=== PATIENT | male | born 1950 | race Caucasian/White ===

== ENCOUNTER 2020-04-21 18:39 | Inpatient (IN) | payer MEDICARE ==
[~2020-04-21] VITALS: Ht 182.9 cm; Wt 64.8 kg
[2020-04-21 19:30] LABS: BASOPHILS % 0.2 % (0.0-1.0); EOSINOPHILS % 0.1 % (0.0-6.0); HEMATOCRIT 47.1 % (38.2-49.6); HEMOGLOBIN 15.2 g/dL (14.0-18.0); LYMPHOCYTES # (AUTO) 0.4 (1.0-3.2); LYMPHOCYTES % 2.3 % (18.0-39.1); MEAN CORPUSCULAR HEMOGLOBIN 27.7 pg (28-32); MEAN CORPUSCULAR HGB CONC 32.3 g/dL (31-35); MEAN CORPUSCULAR VOLUME 85.9 fL (81-99); MONOCYTES # (AUTO) 1.2 (0.2-0.8); MONOCYTES % 7.3 % (4.4-11.3); NEUTROPHILS # (AUTO) 14.9 (2.1-6.9); NEUTROPHILS % 89.6 % (38.7-80.0); PLATELET COUNT 408 x10e3/uL (140-360); RED BLOOD COUNT 5.48 x10e6/uL (4.3-5.7); RED CELL DISTRIBUTION WIDTH 14.7 % (11.7-14.4)
[2020-04-21 20:18] LABS: ALANINE AMINOTRANSFERASE 11 IU/L (0-55); ALBUMIN 3.6 g/dL (3.5-5.0); ALBUMIN/GLOBULIN RATIO 0.9 (0.8-2.0); ALKALINE PHOSPHATASE 79 IU/L (40-150); ANION GAP 19.4 mmol/L (8-16); BLOOD UREA NITROGEN 28 mg/dL (7-26); BUN/CREATININE RATIO 31 (6-25); CALCIUM 8.5 mg/dL (8.4-10.2); CARBON DIOXIDE 22 mmol/L (22-29); CHLORIDE 100 mmol/L (98-107); CREATININE, SERUM 0.91 mg/dL (0.72-1.25); EST GLOMERULAR FILTRATION RATE > 60 ML/MIN (60-); GLUCOSE 121 mg/dL (74-118); POTASSIUM 4.4 mmol/L (3.5-5.1); SODIUM 137 mmol/L (136-145)
[2020-04-21] MEDS ORDERED: DEXAMETHASONE SOD PHOS 10 MG/1 ML VIAL IV ONE (20:30)
[2020-04-21 21:14] VITALS: BP 157/79
[2020-04-21] MEDS ORDERED: FLOMAX0.4 MG PO (21:32)
[2020-04-21] MEDS ORDERED: CHOLECALCIFEROL1 GM PO (21:32)
[2020-04-21] MEDS ORDERED: ATORVASTATIN CA20 MG PO (21:32)
[2020-04-21] MEDS ORDERED: ASCORBIC ACID500 M2 PO (21:32)
[2020-04-21] MEDS ORDERED: METFORMIN HCL500 MG PO (21:32)
[2020-04-21 22:00] VITALS: BP 157/79
[2020-04-21] MEDS: LORAZEPAM INJ 2 MG/ML VIAL IV PRN (23:02)
[2020-04-22] VITALS (8 sets, daily range): BP systolic 116–139; BP diastolic 69–83
[2020-04-22 04:58] LABS: BASOPHILS % 0.2 % (0.0-1.0); EOSINOPHILS # (AUTO) 0.1 (0.0-0.4); EOSINOPHILS % 0.7 % (0.0-6.0); HEMATOCRIT 48.3 % (38.2-49.6); HEMOGLOBIN 14.5 g/dL (14.0-18.0); LYMPHOCYTES # (AUTO) 0.3 (1.0-3.2); LYMPHOCYTES % 1.6 % (18.0-39.1); MEAN CORPUSCULAR HEMOGLOBIN 27.8 pg (28-32); MEAN CORPUSCULAR VOLUME 92.5 fL (81-99); MONOCYTES # (AUTO) 0.7 (0.2-0.8); MONOCYTES % 4.1 % (4.4-11.3); NEUTROPHILS # (AUTO) 16.5 (2.1-6.9); NEUTROPHILS % 93.1 % (38.7-80.0); PLATELET COUNT 284 x10e3/uL (140-360); RED BLOOD COUNT 5.22 x10e6/uL (4.3-5.7); RED CELL DISTRIBUTION WIDTH 14.7 % (11.7-14.4)
[2020-04-22] MEDS ORDERED: DEXTROSE 50% SYRINGE 50 ML IV PRN (05:00)
[2020-04-22 05:21] LABS: ANION GAP 18.7 mmol/L (8-16); BLOOD UREA NITROGEN 25 mg/dL (7-26); BUN/CREATININE RATIO 30 (6-25); CALCIUM 8.5 mg/dL (8.4-10.2); CARBON DIOXIDE 21 mmol/L (22-29); CHLORIDE 102 mmol/L (98-107); CREATININE, SERUM 0.84 mg/dL (0.72-1.25); EST GLOMERULAR FILTRATION RATE > 60 ML/MIN (60-); GLUCOSE 145 mg/dL (74-118); POTASSIUM 4.7 mmol/L (3.5-5.1); SODIUM 137 mmol/L (136-145)
[2020-04-22] MEDS: INSULIN REGULAR, HUMAN 100 UNIT/1 ML 3ML VIAL SQ SCH ×4 (08:43→20:48)
[2020-04-22] MEDS: METFORMIN HCL 500 MG TAB PO SCH ×2 (08:44→17:00)
[2020-04-22] MEDS: DEXAMETHASONE SOD PHOS 10 MG/1 ML VIAL IV SCH (09:30)
[2020-04-22] MEDS ORDERED: SODIUM CHLORIDE 0.9% 250ML 250 ML ONE (09:35)
[2020-04-22] MEDS: AZITHROMYCIN 500MG/NS 250 ML 250 ML IV SCH (09:58)
[2020-04-22] MEDS: CEFTRIAXONE SOD 2 GM/NS 100 ML 100 ML IV SCH (11:04)
[2020-04-22] MEDS ORDERED: TAMSULOSIN HCL 0.4 MG CAP PO SCH (17:00)
[2020-04-22] MEDS: ATORVASTATIN 20 MG TAB PO SCH (20:48)
[2020-04-22] MEDS: LORAZEPAM INJ 2 MG/ML VIAL IV PRN (22:45)
[2020-04-23] VITALS (8 sets, daily range): BP systolic 106–125; BP diastolic 49–90
[2020-04-23 05:47] LABS: BASOPHILS # (AUTO) 0.1 (0.0-0.1); BASOPHILS % 0.4 % (0.0-1.0); HEMATOCRIT 45.3 % (38.2-49.6); HEMOGLOBIN 14.2 g/dL (14.0-18.0); LYMPHOCYTES # (AUTO) 0.7 (1.0-3.2); LYMPHOCYTES % 3.5 % (18.0-39.1); MEAN CORPUSCULAR HEMOGLOBIN 28.1 pg (28-32); MEAN CORPUSCULAR HGB CONC 31.3 g/dL (31-35); MEAN CORPUSCULAR VOLUME 89.7 fL (81-99); MONOCYTES # (AUTO) 1.5 (0.2-0.8); MONOCYTES % 7.2 % (4.4-11.3); NEUTROPHILS # (AUTO) 17.8 (2.1-6.9); NEUTROPHILS % 88.4 % (38.7-80.0); PLATELET COUNT 380 x10e3/uL (140-360); RED BLOOD COUNT 5.05 x10e6/uL (4.3-5.7); RED CELL DISTRIBUTION WIDTH 14.3 % (11.7-14.4)
[2020-04-23 06:12] LABS: ALANINE AMINOTRANSFERASE 7 IU/L (0-55); ALBUMIN/GLOBULIN RATIO 0.7 (0.8-2.0); ALKALINE PHOSPHATASE 73 IU/L (40-150); BLOOD UREA NITROGEN 27 mg/dL (7-26); BUN/CREATININE RATIO 30 (6-25); CALCIUM 9.1 mg/dL (8.4-10.2); CARBON DIOXIDE 27 mmol/L (22-29); CHLORIDE 101 mmol/L (98-107); CREATININE, SERUM 0.89 mg/dL (0.72-1.25); EST GLOMERULAR FILTRATION RATE > 60 ML/MIN (60-); GLUCOSE 119 mg/dL (74-118); MAGNESIUM 2.4 MG/DL (1.3-2.1); SODIUM 141 mmol/L (136-145)
[2020-04-23] MEDS: INSULIN REGULAR, HUMAN 100 UNIT/1 ML 3ML VIAL SQ SCH ×4 (07:30→21:00)
[2020-04-23] MEDS: TAMSULOSIN HCL 0.4 MG CAP PO SCH ×2 (09:00→16:07)
[2020-04-23] MEDS: METFORMIN HCL 500 MG TAB PO SCH ×2 (09:00→16:07)
[2020-04-23] MEDS: DEXAMETHASONE SOD PHOS 10 MG/1 ML VIAL IV SCH (09:17)
[2020-04-23] MEDS: AZITHROMYCIN 500MG/NS 250 ML 250 ML IV SCH (09:17)
[2020-04-23] MEDS: CEFTRIAXONE SOD 2 GM/NS 100 ML 100 ML IV SCH (13:31)
[2020-04-23] MEDS ORDERED: METOPROLOL TARTRATE INJ 1 MG/ML VIAL IV PRN (16:45)
[2020-04-23] MEDS ORDERED: AMIODARONE HCL 150MG 100 ML IV ONE (17:00)
[2020-04-23] MEDS: ATORVASTATIN 20 MG TAB PO SCH (21:00)
[2020-04-23] MEDS ORDERED: METOPROLOL TARTRATE INJ 1 MG/ML VIAL IV ONE (22:15)
[2020-04-23] MEDS ORDERED: AMIODARONE HCL 900 MG in DEXTROSE 5% 500ML 500 ML IV SCH (22:15)
[2020-04-23] MEDS ORDERED: AMIODARONE 900MG 500 ML IV ONE (22:33)
[2020-04-24] MEDS: LORAZEPAM INJ 2 MG/ML VIAL IV PRN (00:25)
[2020-04-24 05:52] LABS: BASOPHILS % 0.1 % (0.0-1.0); HEMATOCRIT 41.5 % (38.2-49.6); HEMOGLOBIN 13.2 g/dL (14.0-18.0); LYMPHOCYTES # (AUTO) 0.3 (1.0-3.2); MEAN CORPUSCULAR HEMOGLOBIN 27.7 pg (28-32); MEAN CORPUSCULAR HGB CONC 31.8 g/dL (31-35); MEAN CORPUSCULAR VOLUME 87.2 fL (81-99); MONOCYTES % 7.3 % (4.4-11.3); NEUTROPHILS # (AUTO) 12.9 (2.1-6.9); NEUTROPHILS % 89.8 % (38.7-80.0); PLATELET COUNT 435 x10e3/uL (140-360); RED BLOOD COUNT 4.76 x10e6/uL (4.3-5.7); RED CELL DISTRIBUTION WIDTH 14.2 % (11.7-14.4)
[2020-04-24] MEDS ORDERED: METOPROLOL TARTRATE 25 MG TAB PO SCH (06:00)
[2020-04-24 06:19] LABS: ALANINE AMINOTRANSFERASE 7 IU/L (0-55); ALBUMIN 2.6 g/dL (3.5-5.0); ALBUMIN/GLOBULIN RATIO 0.6 (0.8-2.0); ALKALINE PHOSPHATASE 70 IU/L (40-150); ANION GAP 15.1 mmol/L (8-16); BLOOD UREA NITROGEN 28 mg/dL (7-26); BUN/CREATININE RATIO 33 (6-25); CALCIUM 8.7 mg/dL (8.4-10.2); CARBON DIOXIDE 29 mmol/L (22-29); CHLORIDE 98 mmol/L (98-107); CREATINE KINASE 94 IU/L (30-200); CREATININE, SERUM 0.84 mg/dL (0.72-1.25); EST GLOMERULAR FILTRATION RATE > 60 ML/MIN (60-); GLUCOSE 274 mg/dL (74-118); POTASSIUM 4.1 mmol/L (3.5-5.1); SODIUM 138 mmol/L (136-145)
[2020-04-24] MEDS: INSULIN REGULAR, HUMAN 100 UNIT/1 ML 3ML VIAL SQ SCH ×4 (07:30→21:00)
[2020-04-24 09:00] VITALS: BP 104/43
[2020-04-24] MEDS: TAMSULOSIN HCL 0.4 MG CAP PO SCH ×2 (09:00→16:51)
[2020-04-24] MEDS: METFORMIN HCL 500 MG TAB PO SCH ×2 (09:00→16:51)
[2020-04-24] MEDS: AZITHROMYCIN 500MG/NS 250 ML 250 ML IV SCH (09:16)
[2020-04-24] MEDS: DEXAMETHASONE SOD PHOS 10 MG/1 ML VIAL IV SCH (09:16)
[2020-04-24] MEDS: METOPROLOL TARTRATE INJ 1 MG/ML VIAL IV SCH ×3 (14:09→22:11)
[2020-04-24] MEDS: CEFTRIAXONE SOD 2 GM/NS 100 ML 100 ML IV SCH (14:09)
[2020-04-24 19:00] VITALS: BP 109/66
[2020-04-24 20:00] VITALS: BP 109/66
[2020-04-24] MEDS ORDERED: AMIODARONE 900MG 500 ML IV ONE (20:09)
[2020-04-24 21:00] VITALS: BP 119/71
[2020-04-24] MEDS: ATORVASTATIN 20 MG TAB PO SCH (21:00)
[2020-04-24 22:21] VITALS: BP 109/74
[2020-04-24 23:00] VITALS: BP 119/74
[2020-04-24] MEDS: AMIODARONE HCL 900 MG in DEXTROSE 5% 500ML 500 ML IV SCH (23:15)
[2020-04-25] VITALS (16 sets, daily range): BP systolic 117–147; BP diastolic 69–85
[2020-04-25 05:22] LABS: BASOPHILS % 0.4 % (0.0-1.0); EOSINOPHILS % 0.1 % (0.0-6.0); HEMATOCRIT 42.6 % (38.2-49.6); HEMOGLOBIN 13.3 g/dL (14.0-18.0); LYMPHOCYTES # (AUTO) 0.3 (1.0-3.2); MEAN CORPUSCULAR HEMOGLOBIN 27.1 pg (28-32); MEAN CORPUSCULAR HGB CONC 31.2 g/dL (31-35); MEAN CORPUSCULAR VOLUME 86.8 fL (81-99); MONOCYTES # (AUTO) 0.9 (0.2-0.8); NEUTROPHILS # (AUTO) 9.6 (2.1-6.9); NEUTROPHILS % 86.3 % (38.7-80.0); PLATELET COUNT 448 x10e3/uL (140-360); RED BLOOD COUNT 4.91 x10e6/uL (4.3-5.7); RED CELL DISTRIBUTION WIDTH 14.4 % (11.7-14.4)
[2020-04-25] MEDS: METOPROLOL TARTRATE INJ 1 MG/ML VIAL IV SCH ×2 (06:00→13:35)
[2020-04-25 06:47] LABS: ALANINE AMINOTRANSFERASE 11 IU/L (0-55); ALBUMIN 2.6 g/dL (3.5-5.0); ALBUMIN/GLOBULIN RATIO 0.6 (0.8-2.0); ALKALINE PHOSPHATASE 68 IU/L (40-150); ANION GAP 14.1 mmol/L (8-16); BLOOD UREA NITROGEN 32 mg/dL (7-26); BUN/CREATININE RATIO 36 (6-25); CALCIUM 8.7 mg/dL (8.4-10.2); CARBON DIOXIDE 31 mmol/L (22-29); CHLORIDE 101 mmol/L (98-107); CREATININE, SERUM 0.89 mg/dL (0.72-1.25); EST GLOMERULAR FILTRATION RATE > 60 ML/MIN (60-); GLUCOSE 222 mg/dL (74-118); MAGNESIUM 2.7 MG/DL (1.3-2.1); POTASSIUM 4.1 mmol/L (3.5-5.1); SODIUM 142 mmol/L (136-145)
[2020-04-25] MEDS: INSULIN REGULAR, HUMAN 100 UNIT/1 ML 3ML VIAL SQ SCH ×4 (08:39→21:33)
[2020-04-25] MEDS: CEFTRIAXONE SOD 2 GM/NS 100 ML 100 ML IV SCH (08:40)
[2020-04-25] MEDS: TAMSULOSIN HCL 0.4 MG CAP PO SCH ×2 (08:40→12:33)
[2020-04-25] MEDS: DEXAMETHASONE SOD PHOS 10 MG/1 ML VIAL IV SCH (08:40)
[2020-04-25] MEDS: METFORMIN HCL 500 MG TAB PO SCH ×2 (08:40→18:06)
[2020-04-25] MEDS: METOPROLOL TARTRATE 25 MG TAB PO SCH (18:07)
[2020-04-25] MEDS: ENOXAPARIN SOD INJ 60 MG/0.6 ML SYR SC SCH (21:30)
[2020-04-25] MEDS: ATORVASTATIN 20 MG TAB PO SCH (21:30)
[2020-04-25] MEDS: AMIODARONE HCL 200 MG TAB PO SCH (23:04)
[2020-04-25] MEDS: AMIODARONE HCL 900 MG in DEXTROSE 5% 500ML 500 ML IV SCH (23:15)
[2020-04-26] VITALS (14 sets, daily range): BP systolic 111–162; BP diastolic 64–96
[2020-04-26] MEDS: METOPROLOL TARTRATE 25 MG TAB PO SCH ×4 (00:30→17:34)
[2020-04-26] MEDS: TAMSULOSIN HCL 0.4 MG CAP PO SCH ×2 (09:00→17:34)
[2020-04-26] MEDS ORDERED: AMIODARONE HCL 200 MG TAB PO SCH (09:00)
[2020-04-26] MEDS: INSULIN REGULAR, HUMAN 100 UNIT/1 ML 3ML VIAL SQ SCH ×4 (09:12→21:44)
[2020-04-26] MEDS: METFORMIN HCL 500 MG TAB PO SCH ×2 (09:25→17:34)
[2020-04-26] MEDS: DEXAMETHASONE SOD PHOS 10 MG/1 ML VIAL IV SCH (09:25)
[2020-04-26] MEDS: AMIODARONE HCL 200 MG TAB PO SCH ×2 (09:25→17:34)
[2020-04-26] MEDS: ENOXAPARIN SOD INJ 60 MG/0.6 ML SYR SC SCH ×2 (09:26→21:41)
[2020-04-26] MEDS: CEFTRIAXONE SOD 2 GM/NS 100 ML 100 ML IV SCH (09:26)
[2020-04-26] MEDS: ATORVASTATIN 20 MG TAB PO SCH (21:41)
[2020-04-27] VITALS (13 sets, daily range): BP systolic 124–148; BP diastolic 71–89
[2020-04-27] MEDS: METOPROLOL TARTRATE 25 MG TAB PO SCH ×4 (00:21→17:35)
[2020-04-27] MEDS: INSULIN REGULAR, HUMAN 100 UNIT/1 ML 3ML VIAL SQ SCH ×4 (07:30→21:19)
[2020-04-27] MEDS: METFORMIN HCL 500 MG TAB PO SCH ×2 (08:08→17:35)
[2020-04-27] MEDS: TAMSULOSIN HCL 0.4 MG CAP PO SCH ×2 (08:08→17:35)
[2020-04-27] MEDS: DEXAMETHASONE SOD PHOS 10 MG/1 ML VIAL IV SCH (08:08)
[2020-04-27] MEDS: ENOXAPARIN SOD INJ 60 MG/0.6 ML SYR SC SCH ×2 (08:08→21:15)
[2020-04-27] MEDS: AMIODARONE HCL 200 MG TAB PO SCH ×2 (08:08→17:35)
[2020-04-27] MEDS: CEFTRIAXONE SOD 2 GM/NS 100 ML 100 ML IV SCH (10:57)
[2020-04-27] MEDS ORDERED: SODIUM CHLORIDE 0.9% 250ML 250 ML ONE (11:10)
[2020-04-27] MEDS: ATORVASTATIN 20 MG TAB PO SCH (21:15)
[2020-04-28] VITALS (10 sets, daily range): BP systolic 129–133; BP diastolic 72–84
[2020-04-28 05:29] LABS: BASOPHILS # (AUTO) 0.1 (0.0-0.1); BASOPHILS % 0.5 % (0.0-1.0); EOSINOPHILS # (AUTO) 0.1 (0.0-0.4); EOSINOPHILS % 0.4 % (0.0-6.0); HEMATOCRIT 46.2 % (38.2-49.6); HEMOGLOBIN 14.5 g/dL (14.0-18.0); LYMPHOCYTES # (AUTO) 0.6 (1.0-3.2); MEAN CORPUSCULAR HEMOGLOBIN 26.9 pg (28-32); MEAN CORPUSCULAR HGB CONC 31.4 g/dL (31-35); MEAN CORPUSCULAR VOLUME 85.7 fL (81-99); MONOCYTES # (AUTO) 1.7 (0.2-0.8); MONOCYTES % 8.4 % (4.4-11.3); NEUTROPHILS # (AUTO) 16.5 (2.1-6.9); NEUTROPHILS % 83.4 % (38.7-80.0); PLATELET COUNT 558 x10e3/uL (140-360); RED BLOOD COUNT 5.39 x10e6/uL (4.3-5.7); RED CELL DISTRIBUTION WIDTH 14.1 % (11.7-14.4)
[2020-04-28 05:59] LABS: ALANINE AMINOTRANSFERASE 23 IU/L (0-55); ALBUMIN 2.3 g/dL (3.5-5.0); ALBUMIN/GLOBULIN RATIO 0.5 (0.8-2.0); ALKALINE PHOSPHATASE 69 IU/L (40-150); ANION GAP 14.9 mmol/L (8-16); BLOOD UREA NITROGEN 36 mg/dL (7-26); BUN/CREATININE RATIO 52 (6-25); CALCIUM 8.9 mg/dL (8.4-10.2); CARBON DIOXIDE 29 mmol/L (22-29); CHLORIDE 103 mmol/L (98-107); CREATININE, SERUM 0.69 mg/dL (0.72-1.25); EST GLOMERULAR FILTRATION RATE > 60 ML/MIN (60-); GLUCOSE 141 mg/dL (74-118); MAGNESIUM 1.9 MG/DL (1.3-2.1); POTASSIUM 3.9 mmol/L (3.5-5.1); SODIUM 143 mmol/L (136-145)
[2020-04-28] MEDS: METOPROLOL TARTRATE 25 MG TAB PO SCH ×4 (06:00→17:27)
[2020-04-28] MEDS: INSULIN REGULAR, HUMAN 100 UNIT/1 ML 3ML VIAL SQ SCH ×4 (08:12→21:00)
[2020-04-28] MEDS: DEXAMETHASONE SOD PHOS 10 MG/1 ML VIAL IV SCH (08:39)
[2020-04-28] MEDS: METFORMIN HCL 500 MG TAB PO SCH ×2 (08:39→17:27)
[2020-04-28] MEDS: ENOXAPARIN SOD INJ 60 MG/0.6 ML SYR SC SCH ×2 (08:39→21:49)
[2020-04-28] MEDS: AMIODARONE HCL 200 MG TAB PO SCH ×2 (08:39→17:27)
[2020-04-28] MEDS: TAMSULOSIN HCL 0.4 MG CAP PO SCH ×2 (08:39→17:27)
[2020-04-28] MEDS: CEFTRIAXONE SOD 2 GM/NS 100 ML 100 ML IV SCH (10:51)
[2020-04-28] MEDS: ATORVASTATIN 20 MG TAB PO SCH (21:49)
[2020-04-29] VITALS (11 sets, daily range): BP systolic 118–141; BP diastolic 64–90
[2020-04-29 05:02] LABS: BASOPHILS # (AUTO) 0.1 (0.0-0.1); BASOPHILS % 0.5 % (0.0-1.0); HEMATOCRIT 47.2 % (38.2-49.6); HEMOGLOBIN 15.1 g/dL (14.0-18.0); LYMPHOCYTES # (AUTO) 0.9 (1.0-3.2); LYMPHOCYTES % 3.5 % (18.0-39.1); MEAN CORPUSCULAR VOLUME 84.4 fL (81-99); MONOCYTES # (AUTO) 1.9 (0.2-0.8); MONOCYTES % 7.8 % (4.4-11.3); NEUTROPHILS # (AUTO) 20.6 (2.1-6.9); NEUTROPHILS % 84.1 % (38.7-80.0); PLATELET COUNT 514 x10e3/uL (140-360); RED BLOOD COUNT 5.59 x10e6/uL (4.3-5.7); RED CELL DISTRIBUTION WIDTH 13.9 % (11.7-14.4)
[2020-04-29 05:16] LABS: INR 1.09; PROTHROMBIN TIME 14.8 seconds (11.9-14.5)
[2020-04-29 05:37] LABS: ALANINE AMINOTRANSFERASE 22 IU/L (0-55); ALBUMIN 2.3 g/dL (3.5-5.0); ALBUMIN/GLOBULIN RATIO 0.5 (0.8-2.0); ALKALINE PHOSPHATASE 71 IU/L (40-150); ANION GAP 16.1 mmol/L (8-16); BLOOD UREA NITROGEN 33 mg/dL (7-26); BUN/CREATININE RATIO 48 (6-25); CALCIUM 8.6 mg/dL (8.4-10.2); CARBON DIOXIDE 28 mmol/L (22-29); CHLORIDE 101 mmol/L (98-107); CREATININE, SERUM 0.69 mg/dL (0.72-1.25); EST GLOMERULAR FILTRATION RATE > 60 ML/MIN (60-); GLUCOSE 134 mg/dL (74-118); POTASSIUM 4.1 mmol/L (3.5-5.1); SODIUM 141 mmol/L (136-145)
[2020-04-29] MEDS: METOPROLOL TARTRATE 25 MG TAB PO SCH ×3 (06:31→21:00)
[2020-04-29] MEDS: INSULIN REGULAR, HUMAN 100 UNIT/1 ML 3ML VIAL SQ SCH ×4 (09:10→21:00)
[2020-04-29] MEDS: CEFTRIAXONE SOD 2 GM/NS 100 ML 100 ML IV SCH (09:12)
[2020-04-29] MEDS: AMIODARONE HCL 200 MG TAB PO SCH ×2 (09:12→17:41)
[2020-04-29] MEDS: ENOXAPARIN SOD INJ 60 MG/0.6 ML SYR SC SCH ×2 (09:12→21:00)
[2020-04-29] MEDS: TAMSULOSIN HCL 0.4 MG CAP PO SCH ×2 (09:12→17:41)
[2020-04-29] MEDS: METFORMIN HCL 500 MG TAB PO SCH ×2 (09:12→17:41)
[2020-04-29] MEDS: DEXAMETHASONE SOD PHOS 10 MG/1 ML VIAL IV SCH (09:12)
[2020-04-29] MEDS: ATORVASTATIN 20 MG TAB PO SCH (21:00)
[2020-04-30] VITALS (8 sets, daily range): BP systolic 107–130; BP diastolic 71–84
[2020-04-30 05:13] LABS: BASOPHILS # (AUTO) 0.2 (0.0-0.1); BASOPHILS % 0.6 % (0.0-1.0); HEMATOCRIT 42.8 % (38.2-49.6); HEMOGLOBIN 13.8 g/dL (14.0-18.0); LYMPHOCYTES # (AUTO) 0.9 (1.0-3.2); LYMPHOCYTES % 2.9 % (18.0-39.1); MEAN CORPUSCULAR HEMOGLOBIN 27.1 pg (28-32); MEAN CORPUSCULAR HGB CONC 32.2 g/dL (31-35); MEAN CORPUSCULAR VOLUME 84.1 fL (81-99); MONOCYTES # (AUTO) 1.2 (0.2-0.8); MONOCYTES % 4.1 % (4.4-11.3); NEUTROPHILS # (AUTO) 25.8 (2.1-6.9); NEUTROPHILS % 88.7 % (38.7-80.0); PLATELET COUNT 461 x10e3/uL (140-360); RED BLOOD COUNT 5.09 x10e6/uL (4.3-5.7); RED CELL DISTRIBUTION WIDTH 13.8 % (11.7-14.4)
[2020-04-30 05:38] LABS: ALANINE AMINOTRANSFERASE 18 IU/L (0-55); ALBUMIN 2.1 g/dL (3.5-5.0); ALBUMIN/GLOBULIN RATIO 0.5 (0.8-2.0); ALKALINE PHOSPHATASE 65 IU/L (40-150); BLOOD UREA NITROGEN 31 mg/dL (7-26); BUN/CREATININE RATIO 46 (6-25); CALCIUM 8.3 mg/dL (8.4-10.2); CARBON DIOXIDE 30 mmol/L (22-29); CHLORIDE 98 mmol/L (98-107); CREATININE, SERUM 0.67 mg/dL (0.72-1.25); EST GLOMERULAR FILTRATION RATE > 60 ML/MIN (60-); GLUCOSE 120 mg/dL (74-118); MAGNESIUM 1.8 MG/DL (1.3-2.1); SODIUM 137 mmol/L (136-145)
[2020-04-30] MEDS ORDERED: CLINDAMYCIN 300MG 50 ML IV SCH (06:00)
[2020-04-30] MEDS ORDERED: CLINDAMYCIN 300MG 50 ML IV ONE (07:30)
[2020-04-30] MEDS: INSULIN REGULAR, HUMAN 100 UNIT/1 ML 3ML VIAL SQ SCH ×4 (07:30→20:30)
[2020-04-30] MEDS: TAMSULOSIN HCL 0.4 MG CAP PO SCH ×2 (09:46→16:52)
[2020-04-30] MEDS: DEXAMETHASONE SOD PHOS 10 MG/1 ML VIAL IV SCH (09:46)
[2020-04-30] MEDS: ENOXAPARIN SOD INJ 60 MG/0.6 ML SYR SC SCH ×2 (09:46→22:00)
[2020-04-30] MEDS: METOPROLOL TARTRATE 25 MG TAB PO SCH ×2 (09:46→23:00)
[2020-04-30] MEDS: AMIODARONE HCL 200 MG TAB PO SCH ×2 (09:46→16:53)
[2020-04-30] MEDS: METFORMIN HCL 500 MG TAB PO SCH ×2 (09:46→16:52)
[2020-04-30] MEDS: CEFTRIAXONE SOD 2 GM/NS 100 ML 100 ML IV SCH (09:47)
[2020-04-30] MEDS ORDERED: SODIUM CHLORIDE 0.9% 250ML 250 ML ONE (10:15)
[2020-04-30] MEDS: CLINDAMYCIN 300MG 50 ML IV SCH ×2 (14:07→22:00)
[2020-04-30] MEDS: ATORVASTATIN 20 MG TAB PO SCH (23:00)
[2020-05-01] VITALS (13 sets, daily range): BP systolic 114–146; BP diastolic 65–84
[2020-05-01] MEDS: CLINDAMYCIN 300MG 50 ML IV SCH ×3 (06:03→22:06)
[2020-05-01] MEDS: INSULIN REGULAR, HUMAN 100 UNIT/1 ML 3ML VIAL SQ SCH ×4 (07:30→20:11)
[2020-05-01] MEDS: METFORMIN HCL 500 MG TAB PO SCH ×2 (08:51→16:52)
[2020-05-01] MEDS: AMIODARONE HCL 200 MG TAB PO SCH ×2 (08:51→16:52)
[2020-05-01] MEDS: TAMSULOSIN HCL 0.4 MG CAP PO SCH ×2 (08:51→16:52)
[2020-05-01] MEDS: DEXAMETHASONE SOD PHOS 10 MG/1 ML VIAL IV SCH (08:51)
[2020-05-01] MEDS: METOPROLOL TARTRATE 25 MG TAB PO SCH ×2 (08:52→22:06)
[2020-05-01] MEDS: ENOXAPARIN SOD INJ 60 MG/0.6 ML SYR SC SCH (08:52)
[2020-05-01] MEDS: CEFTRIAXONE SOD 2 GM/NS 100 ML 100 ML IV SCH (08:54)
[2020-05-01 09:29] LABS: BASOPHILS # (AUTO) 0.1 (0.0-0.1); BASOPHILS % 0.5 % (0.0-1.0); EOSINOPHILS % 0.1 % (0.0-6.0); HEMOGLOBIN 12.6 g/dL (14.0-18.0); LYMPHOCYTES # (AUTO) 0.9 (1.0-3.2); LYMPHOCYTES % 3.3 % (18.0-39.1); MEAN CORPUSCULAR HEMOGLOBIN 27.2 pg (28-32); MEAN CORPUSCULAR HGB CONC 32.3 g/dL (31-35); MEAN CORPUSCULAR VOLUME 84.1 fL (81-99); MONOCYTES # (AUTO) 1.1 (0.2-0.8); MONOCYTES % 3.6 % (4.4-11.3); NEUTROPHILS # (AUTO) 25.8 (2.1-6.9); NEUTROPHILS % 89.4 % (38.7-80.0); PLATELET COUNT 440 x10e3/uL (140-360); RED BLOOD COUNT 4.64 x10e6/uL (4.3-5.7); RED CELL DISTRIBUTION WIDTH 13.7 % (11.7-14.4)
[2020-05-01 09:50] LABS: BLOOD UREA NITROGEN 31 mg/dL (7-26); BUN/CREATININE RATIO 48 (6-25); CALCIUM 8.1 mg/dL (8.4-10.2); CARBON DIOXIDE 29 mmol/L (22-29); CHLORIDE 97 mmol/L (98-107); CREATININE, SERUM 0.65 mg/dL (0.72-1.25); EST GLOMERULAR FILTRATION RATE > 60 ML/MIN (60-); GLUCOSE 129 mg/dL (74-118); SODIUM 133 mmol/L (136-145)
[2020-05-01] MEDS: ATORVASTATIN 20 MG TAB PO SCH (22:06)
[2020-05-02] VITALS (8 sets, daily range): BP systolic 97–128; BP diastolic 59–78
[2020-05-02 05:34] LABS: BASOPHILS % 0.1 % (0.0-1.0); HEMOGLOBIN 12.4 g/dL (14.0-18.0); LYMPHOCYTES # (AUTO) 0.8 (1.0-3.2); LYMPHOCYTES % 2.3 % (18.0-39.1); MEAN CORPUSCULAR HEMOGLOBIN 27.3 pg (28-32); MEAN CORPUSCULAR HGB CONC 32.6 g/dL (31-35); MEAN CORPUSCULAR VOLUME 83.5 fL (81-99); MONOCYTES # (AUTO) 1.2 (0.2-0.8); MONOCYTES % 3.5 % (4.4-11.3); NEUTROPHILS # (AUTO) 30.3 (2.1-6.9); NEUTROPHILS % 91.4 % (38.7-80.0); PLATELET COUNT 436 x10e3/uL (140-360); RED BLOOD COUNT 4.55 x10e6/uL (4.3-5.7); RED CELL DISTRIBUTION WIDTH 13.6 % (11.7-14.4)
[2020-05-02 05:44] LABS: INR 1.01; PROTHROMBIN TIME 13.9 seconds (11.9-14.5)
[2020-05-02] MEDS: CLINDAMYCIN 300MG 50 ML IV SCH ×3 (06:00→21:20)
[2020-05-02 06:04] LABS: ALANINE AMINOTRANSFERASE 25 IU/L (0-55); ALBUMIN/GLOBULIN RATIO 0.5 (0.8-2.0); ALKALINE PHOSPHATASE 54 IU/L (40-150); ANION GAP 11.1 mmol/L (8-16); BLOOD UREA NITROGEN 28 mg/dL (7-26); BUN/CREATININE RATIO 46 (6-25); CARBON DIOXIDE 30 mmol/L (22-29); CHLORIDE 95 mmol/L (98-107); CREATININE, SERUM 0.61 mg/dL (0.72-1.25); EST GLOMERULAR FILTRATION RATE > 60 ML/MIN (60-); GLUCOSE 101 mg/dL (74-118); MAGNESIUM 1.8 MG/DL (1.3-2.1); POTASSIUM 4.1 mmol/L (3.5-5.1); SODIUM 132 mmol/L (136-145)
[2020-05-02] MEDS: INSULIN REGULAR, HUMAN 100 UNIT/1 ML 3ML VIAL SQ SCH ×4 (07:30→20:47)
[2020-05-02] MEDS: METFORMIN HCL 500 MG TAB PO SCH ×2 (08:00→17:00)
[2020-05-02] MEDS: METOPROLOL TARTRATE 25 MG TAB PO SCH ×2 (09:00→20:46)
[2020-05-02] MEDS: AMIODARONE HCL 200 MG TAB PO SCH ×2 (09:00→17:00)
[2020-05-02] MEDS: DEXAMETHASONE SOD PHOS 10 MG/1 ML VIAL IV SCH (09:00)
[2020-05-02] MEDS: TAMSULOSIN HCL 0.4 MG CAP PO SCH ×2 (09:00→17:16)
[2020-05-02] MEDS ORDERED: PROPOFOL IV EMULSION 10 MG/ML 20 ML VIAL ONE (13:25)
[2020-05-02] MEDS ORDERED: LIDOCAINE HCL 2% LOCAL INJ 5 ML SDV VIAL INJ ONE (13:25)
[2020-05-02] MEDS: PANTOPRAZOLE 40 MG 10ML VIAL IV SCH (17:16)
[2020-05-02] MEDS: ATORVASTATIN 20 MG TAB PO SCH (21:20)
[2020-05-02] MEDS ORDERED: IOPAMIDOL 370 MG/ML 200 ML INFUS..BTL INJ ONE (23:04)
[2020-05-02] MEDS ORDERED: SODIUM CHLORIDE 0.9% 50ML 50 ML ONE (23:04)
[2020-05-03] VITALS (7 sets, daily range): BP systolic 116–142; BP diastolic 63–75
[2020-05-03 05:00] LABS: BASOPHILS # (AUTO) 0.1 (0.0-0.1); BASOPHILS % 0.3 % (0.0-1.0); EOSINOPHILS % 0.1 % (0.0-6.0); HEMATOCRIT 38.3 % (38.2-49.6); HEMOGLOBIN 12.5 g/dL (14.0-18.0); LYMPHOCYTES # (AUTO) 0.6 (1.0-3.2); LYMPHOCYTES % 2.5 % (18.0-39.1); MEAN CORPUSCULAR HGB CONC 32.6 g/dL (31-35); MEAN CORPUSCULAR VOLUME 82.7 fL (81-99); MONOCYTES # (AUTO) 0.9 (0.2-0.8); MONOCYTES % 3.6 % (4.4-11.3); NEUTROPHILS # (AUTO) 21.8 (2.1-6.9); NEUTROPHILS % 91.4 % (38.7-80.0); PLATELET COUNT 512 x10e3/uL (140-360); RED BLOOD COUNT 4.63 x10e6/uL (4.3-5.7); RED CELL DISTRIBUTION WIDTH 13.6 % (11.7-14.4)
[2020-05-03 05:20] LABS: ALANINE AMINOTRANSFERASE 36 IU/L (0-55); ALBUMIN 2.1 g/dL (3.5-5.0); ALBUMIN/GLOBULIN RATIO 0.6 (0.8-2.0); ALKALINE PHOSPHATASE 56 IU/L (40-150); ANION GAP 14.9 mmol/L (8-16); BLOOD UREA NITROGEN 18 mg/dL (7-26); BUN/CREATININE RATIO 28 (6-25); CALCIUM 7.8 mg/dL (8.4-10.2); CARBON DIOXIDE 25 mmol/L (22-29); CHLORIDE 96 mmol/L (98-107); CREATININE, SERUM 0.64 mg/dL (0.72-1.25); EST GLOMERULAR FILTRATION RATE > 60 ML/MIN (60-); GLUCOSE 100 mg/dL (74-118); POTASSIUM 3.9 mmol/L (3.5-5.1); SODIUM 132 mmol/L (136-145)
[2020-05-03] MEDS: INSULIN REGULAR, HUMAN 100 UNIT/1 ML 3ML VIAL SQ SCH ×4 (07:30→21:00)
[2020-05-03 07:31] LABS: EOSINOPHILS % (MANUAL) 1 % (0-7); LYMPHOCYTES % (MANUAL) 3 % (19-48); MONOCYTES % (MANUAL) 2 % (3.4-9.0); NEUTROPHILS % (MANUAL) 94 % (40-74); RBC MORPHOLOGY COMMENT NORMAL
[2020-05-03 07:32] LABS: PLATELET ESTIMATE SLIGHTLY INCREASED; PLATELET MORPHOLOGY COMMENT NORMAL
[2020-05-03] MEDS: METFORMIN HCL 500 MG TAB PO SCH ×2 (08:00→16:51)
[2020-05-03] MEDS: TAMSULOSIN HCL 0.4 MG CAP PO SCH ×2 (10:34→16:50)
[2020-05-03] MEDS: ATORVASTATIN 20 MG TAB PO SCH (10:34)
[2020-05-03] MEDS: AMIODARONE HCL 200 MG TAB PO SCH ×2 (10:34→16:50)
[2020-05-03] MEDS: PANTOPRAZOLE 40 MG 10ML VIAL IV SCH ×2 (10:34→16:50)
[2020-05-03] MEDS: METOPROLOL TARTRATE 25 MG TAB PO SCH ×2 (10:41→22:16)
[2020-05-03] MEDS ORDERED: OLANZAPINE 5 MG TAB PO PRN (18:30)
[2020-05-03] MEDS ORDERED: OLANZAPINE 5 MG TAB PO SCH (21:00)
[2020-05-04] VITALS (9 sets, daily range): BP systolic 109–137; BP diastolic 64–79
[2020-05-04 05:10] LABS: BASOPHILS # (AUTO) 0.1 (0.0-0.1); BASOPHILS % 0.5 % (0.0-1.0); EOSINOPHILS % 0.2 % (0.0-6.0); HEMATOCRIT 41.4 % (38.2-49.6); HEMOGLOBIN 13.3 g/dL (14.0-18.0); LYMPHOCYTES # (AUTO) 0.7 (1.0-3.2); MEAN CORPUSCULAR HGB CONC 32.1 g/dL (31-35); MONOCYTES # (AUTO) 1.1 (0.2-0.8); MONOCYTES % 4.4 % (4.4-11.3); NEUTROPHILS # (AUTO) 21.8 (2.1-6.9); NEUTROPHILS % 89.6 % (38.7-80.0); PLATELET COUNT 541 x10e3/uL (140-360); RED BLOOD COUNT 4.93 x10e6/uL (4.3-5.7); RED CELL DISTRIBUTION WIDTH 13.6 % (11.7-14.4)
[2020-05-04 05:27] LABS: ALANINE AMINOTRANSFERASE 36 IU/L (0-55); ALBUMIN 2.3 g/dL (3.5-5.0); ALBUMIN/GLOBULIN RATIO 0.6 (0.8-2.0); ALKALINE PHOSPHATASE 66 IU/L (40-150); BLOOD UREA NITROGEN 17 mg/dL (7-26); BUN/CREATININE RATIO 26 (6-25); CARBON DIOXIDE 25 mmol/L (22-29); CHLORIDE 95 mmol/L (98-107); CREATININE, SERUM 0.66 mg/dL (0.72-1.25); EST GLOMERULAR FILTRATION RATE > 60 ML/MIN (60-); GLUCOSE 96 mg/dL (74-118); SODIUM 133 mmol/L (136-145)
[2020-05-04] MEDS: INSULIN REGULAR, HUMAN 100 UNIT/1 ML 3ML VIAL SQ SCH ×4 (07:30→20:37)
[2020-05-04] MEDS: METFORMIN HCL 500 MG TAB PO SCH ×2 (08:00→17:00)
[2020-05-04 08:40] LABS: LYMPHOCYTES % (MANUAL) 3 % (19-48); MONOCYTES % (MANUAL) 4 % (3.4-9.0); NEUTROPHILS % (MANUAL) 93 % (40-74)
[2020-05-04] MEDS: METOPROLOL TARTRATE 25 MG TAB PO SCH ×2 (09:00→22:01)
[2020-05-04] MEDS: AMIODARONE HCL 200 MG TAB PO SCH ×2 (12:31→20:26)
[2020-05-04] MEDS: TAMSULOSIN HCL 0.4 MG CAP PO SCH ×2 (12:31→20:26)
[2020-05-04] MEDS: PANTOPRAZOLE 40 MG 10ML VIAL IV SCH ×2 (12:31→20:26)
[2020-05-04] MEDS ORDERED: RISPERIDONE 0.5 MG TAB PO PRN (19:15)
[2020-05-04] MEDS: RISPERIDONE 0.5 MG TAB PO SCH (22:01)
[2020-05-04] MEDS: ATORVASTATIN 20 MG TAB PO SCH (22:01)
[2020-05-05] VITALS (8 sets, daily range): BP systolic 110–152; BP diastolic 64–80
[2020-05-05 07:07] LABS: ALANINE AMINOTRANSFERASE 32 IU/L (0-55); ALBUMIN 2.3 g/dL (3.5-5.0); ALBUMIN/GLOBULIN RATIO 0.6 (0.8-2.0); ALKALINE PHOSPHATASE 62 IU/L (40-150); ANION GAP 15.7 mmol/L (8-16); BLOOD UREA NITROGEN 14 mg/dL (7-26); BUN/CREATININE RATIO 22 (6-25); CALCIUM 7.8 mg/dL (8.4-10.2); CARBON DIOXIDE 25 mmol/L (22-29); CHLORIDE 97 mmol/L (98-107); CREATININE, SERUM 0.65 mg/dL (0.72-1.25); EST GLOMERULAR FILTRATION RATE > 60 ML/MIN (60-); GLUCOSE 122 mg/dL (74-118); MAGNESIUM 1.9 MG/DL (1.3-2.1); POTASSIUM 3.7 mmol/L (3.5-5.1); SODIUM 134 mmol/L (136-145)
[2020-05-05 07:10] LABS: BASOPHILS # (AUTO) 0.1 (0.0-0.1); BASOPHILS % 0.3 % (0.0-1.0); EOSINOPHILS # (AUTO) 0.1 (0.0-0.4); EOSINOPHILS % 0.3 % (0.0-6.0); HEMATOCRIT 40.7 % (38.2-49.6); HEMOGLOBIN 13.3 g/dL (14.0-18.0); LYMPHOCYTES # (AUTO) 0.5 (1.0-3.2); LYMPHOCYTES % 2.5 % (18.0-39.1); MEAN CORPUSCULAR HEMOGLOBIN 27.1 pg (28-32); MEAN CORPUSCULAR HGB CONC 32.7 g/dL (31-35); MEAN CORPUSCULAR VOLUME 83.1 fL (81-99); MONOCYTES # (AUTO) 0.8 (0.2-0.8); MONOCYTES % 3.7 % (4.4-11.3); NEUTROPHILS # (AUTO) 18.7 (2.1-6.9); NEUTROPHILS % 91.6 % (38.7-80.0); PLATELET COUNT 647 x10e3/uL (140-360); RED CELL DISTRIBUTION WIDTH 13.5 % (11.7-14.4)
[2020-05-05] MEDS: INSULIN REGULAR, HUMAN 100 UNIT/1 ML 3ML VIAL SQ SCH ×4 (07:30→20:07)
[2020-05-05] MEDS: AMIODARONE HCL 200 MG TAB PO SCH ×2 (08:41→17:01)
[2020-05-05] MEDS: PANTOPRAZOLE 40 MG 10ML VIAL IV SCH ×2 (08:41→17:00)
[2020-05-05] MEDS: METOPROLOL TARTRATE 25 MG TAB PO SCH ×2 (08:41→20:53)
[2020-05-05] MEDS: METFORMIN HCL 500 MG TAB PO SCH ×2 (08:41→17:01)
[2020-05-05] MEDS: TAMSULOSIN HCL 0.4 MG CAP PO SCH ×2 (08:41→17:01)
[2020-05-05 09:10] LABS: LYMPHOCYTES % (MANUAL) 1 % (19-48); MONOCYTES % (MANUAL) 1 % (3.4-9.0); NEUTROPHILS % (MANUAL) 98 % (40-74); RBC MORPHOLOGY COMMENT NORMAL
[2020-05-05 09:11] LABS: PLATELET ESTIMATE MODERATELY INCREASED; PLATELET MORPHOLOGY COMMENT FEW EDTA CLUMPING
[2020-05-05] MEDS: RISPERIDONE 0.5 MG TAB PO SCH (20:53)
[2020-05-05] MEDS: ATORVASTATIN 20 MG TAB PO SCH (20:53)
[2020-05-06 00:15] VITALS: BP 124/67
[2020-05-06 05:16] VITALS: BP 95/72
[2020-05-06] MEDS: INSULIN REGULAR, HUMAN 100 UNIT/1 ML 3ML VIAL SQ SCH ×2 (07:30→11:30)
[2020-05-06 08:37] VITALS: BP 118/64
[2020-05-06] MEDS: TAMSULOSIN HCL 0.4 MG CAP PO SCH (08:52)
[2020-05-06] MEDS: METFORMIN HCL 500 MG TAB PO SCH (08:52)
[2020-05-06] MEDS: AMIODARONE HCL 200 MG TAB PO SCH (08:52)
[2020-05-06] MEDS: METOPROLOL TARTRATE 25 MG TAB PO SCH (08:52)
[2020-05-06] MEDS: PANTOPRAZOLE 40 MG 10ML VIAL IV SCH (08:52)
[2020-05-06 09:18] VITALS: BP 118/64
[2020-05-06 11:54] VITALS: BP 106/60
[2020-05-06 12:11] VITALS: BP 97/56
== END 2020-05-06 12:46 | DRG 177 ==
LOC: ER 18:52 → ERHOLD 20:35 → IMCU 21:02 → OBSVTOIN 04-23 09:02 → COVIDICU 04-23 20:19 → IMCU 04-26 16:01 → MED/SURG3 05-05 00:36
PROVIDERS: ADMIT Internal Medicine; ATTEND Internal Medicine
PROC: 3E0333Z Introduction of Anti-inflammatory into Peripheral Vein, Percutaneous Approach (ICD-10-PCS; 2020-04-21)
PROC: 02HV33Z Insertion of Infusion Device into Superior Vena Cava, Percutaneous Approach (ICD-10-PCS; principal; 2020-04-23)
PROC: B548ZZA Ultrasonography of Superior Vena Cava, Guidance (ICD-10-PCS; 2020-04-23)
PROC: 0DB78ZX Excision of Stomach, Pylorus, Via Natural or Artificial Opening Endoscopic, Diagnostic (ICD-10-PCS; 2020-05-02)
PROC: 0DH63UZ Insertion of Feeding Device into Stomach, Percutaneous Approach (ICD-10-PCS; 2020-05-02)
DX: U07.1 COVID-19 (principal); J12.82 Pneumonia due to coronavirus disease 2019; J69.0 Pneumonitis due to inhalation of food and vomit; J96.01 Acute respiratory failure with hypoxia; K25.3 Acute gastric ulcer without hemorrhage or perforation; F03.91 Unspecified dementia, unspecified severity, with behavioral disturbance; Z68.1 Body mass index [BMI] 19.9 or less, adult; I48.91 Unspecified atrial fibrillation; E11.9 Type 2 diabetes mellitus without complications; I10 Essential (primary) hypertension; N40.1 Benign prostatic hyperplasia with lower urinary tract symptoms; R33.8 Other retention of urine; K22.2 Esophageal obstruction; K21.00 Gastro-esophageal reflux disease with esophagitis, without bleeding; K44.9 Diaphragmatic hernia without obstruction or gangrene; K29.70 Gastritis, unspecified, without bleeding; K29.80 Duodenitis without bleeding; E78.5 Hyperlipidemia, unspecified; R62.7 Adult failure to thrive; F29 Unspecified psychosis not due to a substance or known physiological condition; R13.12 Dysphagia, oropharyngeal phase
CPT/HCPCS: 36415; 36569; 43239; 43246; 71045; 74018; 74177; 80048; 80053; 82550; 82553; 82948; 83735; 84484; 85025; 85610; 87040; 87086; 87400; 88305; 88312; 93005; 96372; 97139; 99251; 99284; G0378; J0456; J0696; J1100; J1650; J1817; J2001; J2060; J7050; J7060; Q9967; U0002